=== PATIENT | male | born 2000 | race Caucasian/White ===

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

== ENCOUNTER 2020-02-20 23:06 | Emergency (ER) | payer OTHER ==
[~2020-02-20] VITALS: Ht 187.9 cm; Wt 87.1 kg
[2020-02-20] MEDS ORDERED: IBU800 MG PO (23:34)
[2020-02-20] MEDS ORDERED: SEPTDS PO (23:34)
== END 2020-02-20 23:42 | disposition home or self-care (01) ==
LOC: ED 23:06
DX: L03.211 Cellulitis of face (principal); J45.909 Unspecified asthma, uncomplicated; Z88.8 Allergy status to other drugs, medicaments and biological substances; Z79.899 Other long term (current) drug therapy

== ENCOUNTER 2020-09-22 14:00 | Emergency (ER) | payer OTHER ==
[~2020-09-22] VITALS: Ht 187.9 cm; Wt 93.0 kg
[~2020-09-22 14:00] MED LIST changes: +IBU800 MG PO; +SEPTDS PO
[2020-09-22] MEDS ORDERED: DOXYCYCLINE100 M3 PO (15:03)
== END 2020-09-22 15:17 | disposition home or self-care (01) ==
LOC: ED 14:00
DX: T24.012A Burn of unspecified degree of left thigh, initial encounter (principal); J45.909 Unspecified asthma, uncomplicated; Z88.8 Allergy status to other drugs, medicaments and biological substances; Z79.899 Other long term (current) drug therapy; X58.XXXA Exposure to other specified factors, initial encounter; Y93.89 Activity, other specified; Y92.89 Other specified places as the place of occurrence of the external cause; Y99.8 Other external cause status

== ENCOUNTER → 2020-09-25 | Outpatient (CLI) | payer OTHER ==
[~2020-09-25] MED LIST changes: +DOXYCYCLINE100 M3 PO
== END ==
LOC: WOUNDCARE 01:02
PROVIDERS: ATTEND Nurse Practitioner
DX: T24.212A Burn of second degree of left thigh, initial encounter (principal); T31.0 Burns involving less than 10% of body surface; J45.909 Unspecified asthma, uncomplicated; F17.210 Nicotine dependence, cigarettes, uncomplicated; X13.1XXA Other contact with steam and other hot vapors, initial encounter; Y93.89 Activity, other specified; Y92.89 Other specified places as the place of occurrence of the external cause; Y99.8 Other external cause status